=== PATIENT | male | born 1965 | race Caucasian/White ===

== ENCOUNTER 2023-04-28 16:29 | Emergency (ER) | payer MEDICAID ==
[~2023-04-28] VITALS: Ht 177.8 cm; Wt 113.4 kg
[2023-04-28 16:40] VITALS: BP_SYST 187; PULSE 98; RESP 16; TEMP 97.6; O2SAT 99
[2023-04-28] MEDS ORDERED: MORPHINE 4 MG INJ. 4 MG/ML VIAL IVP ONE ×2 (17:30→19:30)
[2023-04-28] MEDS ORDERED: ONDANSETRON HCL 4 MG/2 ML VIAL IVP ONE (17:30)
[2023-04-28 17:54] LABS: BASOPHILS # (AUTO) 0.1 K/uL (0.0-0.2); EOSINOPHILS # (AUTO) 0.3 K/uL (0.0-0.4); EOSINOPHILS % (AUTO) 3.6 % (0.0-4.0); HEMATOCRIT 44.9 % (36-54); HEMOGLOBIN 14.9 g/dL (14.0-18.0); LYMPHOCYTES # (AUTO) 1.1 K/uL (1.0-5.5); LYMPHOCYTES % (AUTO) 12.2 % (20.5-51.5); MEAN CORPUSCULAR HEMOGLOBIN 30 pg (27-31); MEAN CORPUSCULAR HGB CONC 33 % (32-36); MEAN CORPUSCULAR VOLUME 89 fL (79.0-98.0); MONOCYTES # (AUTO) 0.7 K/uL (0.0-1.0); MONOCYTES % (AUTO) 8.2 % (1.7-9.3); NEUTROPHILS # (AUTO) 6.9 K/uL (1.8-7.7); PLATELET COUNT (AUTO) 247 K/uL (130-430); RED BLOOD CELL COUNT(AUTO) 5.03 MIL/uL (4.2-6.2); RED CELL DISTRIBUTION WIDTH 13.7 % (9.0-15.0); WHITE BLOOD COUNT (AUTO) 9.2 K/uL (4.8-10.8)
[2023-04-28 18:12] LABS: PROTHROMBIN TIME 10.6 SECS (9.5-12.5)
[2023-04-28 18:13] LABS: CALCIUM 9.6 mg/dL (8.4-11.0); CREATININE 0.9 mg/dL (0.55-1.30); POTASSIUM 3.7 mmol/L (3.5-5.1); TOTAL BILIRUBIN 0.3 mg/dL (0.0-1.0); TOTAL PROTEIN, SERUM 8.2 g/dL (6.4-8.3)
[2023-04-28 18:25] LABS: BILIRUBIN,URINE NEGATIVE (NEGATIVE); BLOOD, URINE 2+ (NEGATIVE); CLARITY/URINE CLEAR (CLEAR); COLOR,URINE YELLOW (YELLOW); GLUCOSE,URINE NEGATIVE (NEGATIVE); KETONES,URINE NEGATIVE (NEGATIVE); LEUKOCYTE ESTERASE ,URINE NEGATIVE (NEGATIVE); NITRITE, URINE NEGATIVE (NEGATIVE); PROTEIN URINE NEGATIVE (NEGATIVE); UROBILINOGEN,URINE 0.2 (0.2-1.0)
[2023-04-28 18:38] LABS: BACTERIA,URINE None Seen /HPF (None Seen)
[2023-04-28 19:41] VITALS: TEMP 97.9
[2023-04-28] MEDS ORDERED: HYDROmorphone 1 MG/ML INJ. CARTRIDGE IVP ONE (22:00)
[2023-04-29] MEDS ORDERED: HYDROmorphone 1 MG/ML INJ. CARTRIDGE ONE (00:31)
[2023-04-29 00:35] VITALS: BP_SYST 144; PULSE 84; RESP 19; O2SAT 98
== END 2023-04-29 00:35 | disposition short-term general hospital (02) ==
LOC: SED 16:29
DX: R10.32 Left lower quadrant pain (principal); M54.50 Low back pain, unspecified; R32 Unspecified urinary incontinence; R20.0 Anesthesia of skin; Z88.1 Allergy status to other antibiotic agents; Z88.6 Allergy status to analgesic agent; Z79.899 Other long term (current) drug therapy
CPT/HCPCS: 99291; 72131; 96374; 96375 ×2; 80053; 81001; 83690; 85025; 85610; 86886; 86900; 86901; 36415; 76376; 74177; 96376; 81000; 81015; J2405; J2270; Q9967; J1170